=== PATIENT | female | born 2000 | race Caucasian/White ===

== ENCOUNTER → 2020-03-13 | Outpatient (CLI) | payer OTHER ==
[~2020-03-13] MED LIST: LEVAQUIN 750MG750 M1 PO; PREDNISONE20 MG PO
== END ==
LOC: ZCOL.LAB 14:36
DX: R05 Cough (principal); R51 Headache; Z20.828 Contact with and (suspected) exposure to other viral communicable diseases

== ENCOUNTER → 2020-05-07 | Outpatient (CLI) | payer OTHER | LOC: MC.RAD 08:53 | DX: N63.20 Unspecified lump in the left breast, unspecified quadrant (principal) ==

== ENCOUNTER → 2020-05-26 | Outpatient (CLI) | payer OTHER | LOC: MC.RAD 07:52 | DX: N63.20 Unspecified lump in the left breast, unspecified quadrant (principal); Z98.82 Breast implant status ==